=== PATIENT | female | born 1945 | race Caucasian/White ===

== ENCOUNTER 2025-02-02 06:25 | Day surgery (SDC) | payer OTHER, BC ==
[2025-01-30 15:48] LABS: Absolute Lymphocytes (CBC) 1.2 K/uL (0.7-4.9); Hematocrit 46.3 % (36.0-45.0); Hemoglobin 16.0 g/dL (12.0-15.0); MCH 30.3 pg (27.0-35.0); MCHC 34.7 g/dL (32.0-36.0); MCV 87.5 fL (80-100); MPV 7.6 fL (7.6-11.3); Nucleated RBC Absolute Count 0.0 (0-0); Nucleated Red Blood Cells % 0.3 % (0-0); RBC Red Blood Cell Count 5.29 M/uL (3.86-4.86); White Blood Count 7.70 thou/uL (4.3-10.9)
[2025-01-30 16:05] LABS: Anion Gap 7.5 mEq/L (5.0-15.0); BUN Blood Urea Nitrogen 16.0 mg/dL (7-18); Glucose Level 131.0 mg/dL (74-106); Potassium 5.5 mEq/L (3.5-5.1)
[2025-02-02] MEDS: Ringers Lactate 1,000 ML IV ONE (07:30)
[2025-02-02] MEDS ORDERED: NS 0.9% VIAL 10 ML ONE (08:02)
[2025-02-02] MEDS ORDERED: Phenylephrine HCl 10 MG/ML 1 ML VIAL ONE (08:02)
[2025-02-02] MEDS ORDERED: LIDOCAINE 1% MPF 5 ML VIAL ONE (08:02)
[2025-02-02] MEDS ORDERED: NA CHLORIDE 0.9% 100 ML ONE (08:09)
[2025-02-02 09:57] VITALS: BP 147/72; TEMP 97.6; O2SAT 93
== END 2025-02-02 09:53 | disposition home or self-care (01) ==
LOC: OR 06:25
PROVIDERS: ATTEND Surgery
PROC: 0DBM8ZX Excision of Descending Colon, Via Natural or Artificial Opening Endoscopic, Diagnostic (ICD-10-PCS; 2025-02-02)
PROC: 0DBK8ZX Excision of Ascending Colon, Via Natural or Artificial Opening Endoscopic, Diagnostic (ICD-10-PCS; principal; 2025-02-02 08:30)
DX: R19.5 Other fecal abnormalities (principal); K57.30 Diverticulosis of large intestine without perforation or abscess without bleeding; K64.4 Residual hemorrhoidal skin tags; K64.8 Other hemorrhoids; K63.5 Polyp of colon
CPT/HCPCS: 93005; 85025; 80048; 36415 ×2; 84132; 88305; 45384; A4216; J2704; J2003; J2371; J7120